=== PATIENT | female | born 1960 | race Two or more races ===

== ENCOUNTER 2016-07-20 16:26 | Emergency (ER) | payer MEDICAID, OTHER ==
--- NOTE | 2016-07-20 18:34 | RAD ---
CHEST - 2 VIEWS COMPARISON: None. HISTORY: Cough for 3 weeks. FINDINGS: Views: Frontal and lateral chest Lungs: Normal Heart and vessels: Normal heart size. Elongated aorta. Trachea and bronchi: Normal Mediastinum and cordell: Normal Costophrenic sulci: Normal Chest wall and bones: Normal. Upper abdomen: Surgical clips in the right upper quadrant. IMPRESSION: No pneumonia. Atherosclerosis aorta.
== END 2016-07-20 18:50 | disposition home or self-care (01) ==
LOC: ED 16:26
DX: R05 Cough (principal); J02.9 Acute pharyngitis, unspecified